=== PATIENT | male | born 1990 | race Caucasian/White ===

== ENCOUNTER 2017-04-28 14:39 | Emergency (ER) | payer BC ==
[~2017-04-28] VITALS: Ht 172.7 cm; Wt 100.0 kg
[~2017-04-28 14:39] MED LIST: AMOXICILLIN 50500 MG PO; HALLS; LORTAB 5/500 501 TAB PO; MUCINEX 60600 MG/TA1 PO; NO HOME MEDICATIONS; TUSS PO; [UNRECOGNIZED DRUG - REMARK]
[2017-04-28 14:56] VITALS: BP 134/66; PULSE 84; TEMP 98.2
[2017-04-28] MEDS ORDERED: PREDNISONE20 MG PO (16:08)
[2017-04-28] MEDS ORDERED: FLEXERIL 1010 MG/TAB PO (16:08)
== END 2017-04-28 16:36 | disposition home or self-care (01) ==
LOC: COL.ER 14:39
DX: M54.2 Cervicalgia (principal); R20.2 Paresthesia of skin